=== PATIENT | female | born 1940 | race Caucasian/White ===

== ENCOUNTER 2016-06-15 03:51 | Inpatient (IN) | payer MEDICARE, OTHER ==
--- NOTE | ~2016-06-15 | HP ---
History And Physical [place] [address] [facility] [place]. [address] NAME: KELTON HOOVER : 42 STATUS : ADM IN [facility]#: [id number] AGE: 75 ADM/REG DATE : 06/15/16 MR#: [id number] REPORT SERV DATE: 06/15/16 DICTATED BY: JUAN MIGUEL GONSALEZ DATE: 06/15/16 REPORT STATUS : Draft TRANSCRIBED BY: MODL DATE: 06/15/16 DATE OF ADMISSION: 06/15/2016 CHIEF COMPLAINT: Shortness of breath and cough. HISTORY OF PRESENT ILLNESS: The patient is a 75-year-old female whom I am asked to see for the Hospitalist Service. She is normally a patient of Dr. Gleason's. She was recently discharged on 06/08/2016 of this month after admission for atrial fibrillation, ESBL UTI, COPD, diabetes, and CKD. Dr. Gleason is currently unavailable, and the patient gives consent for treatment at this time. History is per the patient and her . They state that last evening she became more short of breath. Her thought it may be her heart more than her COPD. He gave her her Coreg and Cardizem as per her previous guidelines. When she still was short of breath, she presented to the emergency department. Here, she was noted to be in AFib with RVR, heart rates around 100. She was also noted to have some slight increase in her renal function with a creatinine of 1.46, it was previously 0.79 at her last discharge. The patient is currently denying chest pain. She does experience some palpitations. No fevers or chills. No chest pain. She normally is on approximately 3 liters of nasal cannula, she is on 4 here. Heart rate has been anywhere from the low 100s to the 120s to 130s when I have been talking to her, but her heart rate seems to trend down. She is currently, otherwise, without complaints. PAST MEDICAL HISTORY: As covered above. PAST SURGICAL HISTORY: As reviewed in her records. HOME MEDICATIONS: Eliquis 5 b.i.d.; aspirin 81; Symbicort 160/4.5 two puffs twice a day; Caltrate 600 plus D; Coreg 25 b.i.d.; Cardizem CD 120 q.6 hours; folic acid 800; Neurontin 600; Mucinex 600; hydrocodone 5/325; Lantus twice a day, unknown dose; Humalog sliding scale, unknown dose; Combivent one puff four times a day; levothyroxine 100; magnesium 400; Mycostatin t.i.d.; potassium 10; prednisone Dosepak; Florastor 250; and Spiriva inhaler. ALLERGIES: TO IODINE, CODEINE, LISINOPRIL, AND BACTRIM. FAMILY HISTORY: Noncontributory. SOCIAL HISTORY: The patient is . Lives with her who is with her here this evening. REVIEW OF SYSTEMS: HEENT: No complaints. CARDIOVASCULAR: As covered in the HPI. PULMONARY: As covered in the HPI. GI: No nausea or vomiting. NEUROMUSCULOSKELETAL: No complaints. NEUROLOGICAL: No complaints. History And Physical [address] [address] NAME: KELTON HOOVER : 42 STATUS : ADM IN [facility]#: [id number] AGE: 75 ADM/REG DATE : 06/15/16 MR#: [id number] REPORT SERV DATE: 06/15/16 DICTATED BY: JUAN MIGUEL GONSALEZ DATE: 06/15/16 REPORT STATUS : Draft TRANSCRIBED BY: CALOS DATE: 06/15/16 Remainder of 14-point review of systems is negative. PHYSICAL EXAMINATION: VITAL SIGNS: BP 114/71, pulse 102, temperature 97.6, respirations 24, and saturation 99%. GENERAL: She is awake, alert, and oriented. She is not confused, no acute distress. Reasonable historian. HEENT: Normocephalic and atraumatic. Sclerae nonicteric. NECK: Supple. HEART: Irregular, tachycardic. LUNGS: She has some rales and rhonchi bilaterally. ABDOMEN: Obese, benign. EXTREMITIES: Positive for dependent edema, right greater than left, the patient states that is chronic. LABORATORY DATA: Sodium 135, potassium 3.7, chloride 89, CO2 36, BUN and creatinine 33 and 1.46 with a glucose of 100. Troponin is less than 0.02. BNP is 418.7. White count 7.5, H and H are 9.3 and 32.3, and platelets are 274. Urinalysis is negative. Blood and sputum cultures are pending. EKG shows atrial fibrillation. Blood gas; pH 7.43, CO2 of 69, O2 85, bicarb 45, and sat 96% on 4 liters. ASSESSMENT: Shortness of breath in a 75-year-old female with a past history of chronic obstructive pulmonary disease, atrial fibrillation, now with elevated creatinine, presumed from diuresis. PLAN: 1. The patient has been admitted. 2. Rate control. 3. Cardiology consult. 4. We will maximize her pulmonary status. 5. She may benefit from some BiPAP with sleep and at bedtime. 6. We will hold her diuretics, although her BNP is slightly elevated, creatinine is quite high. 7. We will return care to Dr. Gleason when available. TLF/MODL Juan Miguel Gonsalez M.D. / [id number] CC: MD Mayco Arroyo M.D.
--- NOTE | ~2016-06-15 | CN ---
Consultation Report [facility] [address] [place]. [address] NAME: KELTON HOOVER : 42 STATUS : ADM IN PAT#: [id number] AGE: 75 ADM/REG DATE : 06/15/16 MR#: [id number] REPORT SERV DATE: 06/15/16 DICTATED BY: ZABRINA ESQUIVEL DATE: 06/15/16 REPORT STATUS : Draft TRANSCRIBED BY: MODKane DATE: 06/15/16 CARDIOLOGY CONSULTATION NOTE DATE OF CONSULTATION: HISTORY OF PRESENT ILLNESS: This bedridden, obese 75-year-old white female, ex-smoker with COPD, was admitted with a two-week history of increasing shortness of breath with some peripheral edema. She had been seen over the years by Dr. Mittal prior to his fdc and was told that she also had chronic atrial fibrillation and congestive heart failure. She has had no recent echocardiogram, but has a known cardiac murmur. There is a long history of past hypertension and diabetes mellitus as well as psoriasis; she has been on steroid therapy off and on for her COPD, as well. FAMILY HISTORY: Negative for premature atherosclerotic heart disease. PREVIOUS SURGERIES: Include hip repair, shoulder repair, and an appendectomy. SOCIAL HISTORY: She is and has three healthy children. MEDICATIONS: At home have included Eliquis, Halfprin, Symbicort, Caltrate, carvedilol, diltiazem, folic acid, gabapentin, [place], insulin for diabetes mellitus, Combivent inhaler, thyroid replacement therapy with levothyroxine, magnesium, and nystatin. She also takes prednisone, Dosepak, and potassium replacement. She uses a Spiriva HandiHaler when wheezing. ALLERGIES: SHE HAS NO KNOWN ALLERGIES. SHE HAS INTOLERANCE TO IODINE, CODEINE, LISINOPRIL, SULFA DRUGS, AND TRIMETHOPRIM. SHE SEES CANDIDO MORALES HER PRIMARY CARE PROVIDER, WHO SEES HER IN THE HOME SETTING. THERE HAS BEEN NO SYNCOPE OR NEAR SYNCOPE. NO HISTORY OF RECENT STROKE OR TIA SYMPTOMS. LABORATORY STUDIES: BUN is 33 with a creatinine of 1.46, potassium 3.7, platelet counts are 274,000. Hematocrit 32%, white blood cell count 7.5 thousand. Troponin less than 0.02. B type natriuretic peptide elevated at 419. REVIEW OF SYSTEMS: She denies any chest pain and has had no chills, fever, or hemoptysis. PHYSICAL EXAMINATION: VITAL SIGN: Blood pressure 110/70. HEENT: Head reveals cushingoid features. Eyes are PERRLA. Nose had no epistaxis. SKIN: Clear of ulceration, but she had multiple bruises present on her legs and chest. She is unable to walk and has not been falling to account for the bruising. Psoriatic lesions are also noted. Consultation Report [address] [place]. [address] NAME: KELTON HOOVER : 42 STATUS : ADM IN PAT#: [id number] AGE: 75 ADM/REG DATE : 06/15/16 MR#: [id number] REPORT SERV DATE: 06/15/16 DICTATED BY: ZABRINA ESQUIVEL DATE: 06/15/16 REPORT STATUS : Draft TRANSCRIBED BY: CALOS DATE: 06/15/16 NECK: Supple. LUNGS: Had decreased breath sounds. I hear no wheezes, rales, or rhonchi. HEART: Irregular rhythm, variable S1, normal S2. Grade 2/6 systolic ejection murmur at the base radiating the base of the neck. ABDOMEN: Morbidly obese. Nontender. EXTREMITIES: Had mild pitting edema to the knees bilaterally. She is very large. NEUROLOGIC: Intact except for a chronic tremor. She said that her father and his brother have also had this tremor. CLINICAL IMPRESSIONS: 1. Shortness of breath-multifactorial. 2. Chronic obstructive pulmonary disease in an ex-smoker. 3. Aortic stenosis murmur. 4. Previous history of congestive heart failure. 5. Atrial fibrillation. 6. Morbid obesity. 7. Psoriasis. 8. History of hypertension. 9. History of type 2 diabetes mellitus. RECOMMENDATIONS: 1. Cautious diuresis for volume overload. 2. Check echocardiogram with Doppler. 3. Check a TSH. 4. Further recommendations to follow clinical course. I agree with management and workup by the hospitalist service. 5. EKG shows atrial fibrillation with normal axis and nonspecific T changes. CALOS/CALOS Zabrina Esquivel M.D. / [id number] CC: MD Candido Arroyo M.D.
--- NOTE | ~2016-06-15 | DS ---
Discharge Summary [facility] [address] [place]. [address] NAME: KELTON HOOVER : 42 STATUS : DIS IN PAT#: [id number] AGE: 75 ADM/REG DATE : 06/15/16 MR#: [id number] REPORT SERV DATE: 06/23/16 DICTATED BY: CANDIDO MORALES DATE: 06/22/16 REPORT STATUS : Draft TRANSCRIBED BY: MODL DATE: 06/22/16 ADMISSION DATE: 06/15/2016 DISCHARGE DATE: 06/22/2016 DATE AND TIME OF : 06/22/2016 at 2:58 p.m. HISTORY OF PRESENT ILLNESS: The patient came into the hospital with a chief complaint of shortness of breath with AFib and RVR, heart rate from 100 to 130, required BiPAP at sleep. Cardiology was consulted. She had a BNP of 418.7 and a BUN and creatinine of 33 and 1.46. Chest x-ray revealed pleural effusions with vascular congestion. She was admitted on telemetry, started on a Cardizem drip for cardiac regulation, breathing treatment. DISCHARGE DIAGNOSES: Hypoventilation secondary to her morbid obesity and history of chronic obstructive pulmonary disease with exacerbations and hypercapnia; diastolic congestive heart failure with a left ventricular ejection fraction of 55%; history of medical noncompliance, back in January, it was asked of her to use a CPAP machine at home, which she refused and frequently would refuse her BiPAP in the hospital; history of atrial fibrillation; insulin- dependent diabetes, following her discharge, the patient ate very little; and extended- spectrum beta-lactamase urinary tract infection. HOSPITAL COURSE: Following her last hospitalization, she ate very little, slept most of the day, refused to keep her appointments with GI and Cardiology as she would have to pay for transportation down. Blood sugars were well controlled at home, and upon coming into the hospital, had anasarca, fatigue, hyponatremia from fluid overload, and despite aggressive diuresing, the patient continued to go down. Had a discussion in the presence of both her and her on 06/20/2016 with the goal being that we would aggressively diurese her, she would agree to use a BiPAP for discharge to home on 06/22/2016. The patient continued to decline and later at 2:58 on 06/22/2016. Her son and daughter had spent the night prior on 06/21/2016. Everyone was very realistic about what was going on. The was still very hopeful that something else could be done. He is very distraught. We will follow him up in our clinic next week. MAYDA/CALOS Candido Morales M.D. / [id number] CC: Candido Morales M.D.
[~2016-06-15 03:51] MED LIST: *UNABLE2; 8 HOUR650 MG PO; ACTOS45 PO; ALTACE10 MG PO; AMARYL2 PO; APRES50 PO; ASA5GR PO; ASAB PO; ATV.5 PO; ATV1 PO; B-12 PO; B12250T PO; BACDS PO; BAZA TOP; BISR PR; BREO ELLIPTA INH; CALTRA600D PO; CARD60 PO; CARDCD180 PO; CEFT2 PO; CEFT5 PO; CEFUROXIME; CENTRUM PO; CHERATUSSIN PO; CIP5 PO; COMBIVENT RESPIM4 GM INH; COREG25 PO; COREG3 PO; COREG6 PO; CYANO1000T PO; D.O.S.100 MG PO; DIGITEK0.125 MG PO; DOCUSOFT S100 MG PO; DSS PO; DUONEB INH; ELIQUIS 5 MG TAB5 MG PO; ENBREL25 MG SC; ENBREL50 MG/M1 SC; FLEET ENEMA PR; FLEX PO; FLONASE NAS; FLORASTOR250 MG PO; FLUCON1 PO; FOLIC ACID400 MC1 PO; FOLIC ACID800 MCG PO; FOLIC PO; GLUCAGON IM; GRALISE600 MG PO; HALF81 PO; HUMALOG SC; HUMALOGPEN SC; IMOD PO; INCRUSE ELLIPTA INH; K-TABS10 MEQ PO; KAPIDEX60 MG PO; KDUR10 PO; KLOR-CON 1010 MEQ PO; KURIC2 % TOP; L20 PO; LAN125 PO; LANOXIN 0.120.125 MG OR; LANTUS SC; LANTUSCART SC; LEVEMFLXPN SC; LEVEMIR SC; LEVOTHROID88 MCG PO; LEVOTHYROXIN100 MCG PO; LEXAPRO10 PO; LEXAPRO20 PO; LEXAPRO5 MG PO; LIDODERM TOP; LIPITOR40 PO; LORT7 PO; LOVENOX40 SC; MAALOX PO; MAGOX4 PO; MERREM500 MG IV; METAMUCIL CAN7 OZ OR; METAMUCIL CAN7 OZ PO; MICRO-K10 MEQ PO; MIRALAXPKT PO; MOMUD PO; MTX2.5 PO; MUCINEX600 MG PO; MULTIPLE VIT PO; MULTIVITAMI1 PO; MYCOLOG II CREA15 GM TOP; MYCOSCROI TOP; MYCOSOINT TOP; NEBULIZER; NEUR600 PO; NEXIUM40 PO; NORCO1 TA1 PO; NORCO1 TA2 PO; NORCO1 TAB PO; NORV5 PO; NOVOLOG SC; NOVOPEN SC; NTG150 SL; NYSTATIN-TRIAMC15 GM TOP; NYSTATPOW TOP; NYSTOP100000 MG TOP; OCEAN NAS; P10 PO; P20 PO; P5 PO; PRIN5 PO; PROAIR HFA INH; PROBIOTIC OTC PO; PROBIOTIC PO; PROTONIX PO; PROVENT20 INH; RESCUE INHALER PO; REST15 PO; SENTAB PO; SPIRIVA INH; STARLIX60 PO; STERAPRED DS10 MG; STOOL SOFTEN100 MG PO; SYMBICORT 160/41 INH INH; SYN1 PO; TESS PO; TRAZ100 PO; TRAZ50 PO; TREXALL7.5 MG PO; TRIDERM0.1 % TOP; ULTRAM50 PO; VENTOLIN HFA INH; VICODIN ES1 TAB PO; VIT B-12 PO; VITAMIN D PO; VITAMIN D1000 UNI1 PO; VITAMIN D31000 UNIT PO; VITC500 PO; ZYVOXPO PO; [UNRECOGNIZED DRUG - OTHER] T
[2016-06-15 04:07] LABS: ALLENS TEST Pos; BE (BASE EXCESS) 18.1 MEQ/L (0 +/- 2.5); CARBOXYHEMOGLOBIN 0.3 % (0-3); DEVICE NC; HCO3 (ACTUAL BICARBONATE) 45.1 MEQ/L (23-27); HEMOBLOGIN CONTENT 9.9 G/DL (12-16); INSTRUMENT SERIAL # 8087; METHEMOGLOBIN 0.3 % (0-3); O2 CONTENT 13.4 VOL% (18-24); PCO2 (CO2 TENSION) 69 MMHG (35-45); PO2 (O2 TENSION) 85 MMHG (79-93); SAMPLE Arterial; pH 7.43 (7.37-7.43)
[2016-06-15 05:01] LABS: INFLUENZA A SCREEN NEGATIVE (NEGATIVE); INFLUENZA B SCREEN NEGATIVE (NEGATIVE)
[2016-06-15 05:11] LABS: BASOPHILS 0.5 %; BASOPHILS ABSOLUTE 0.04 10/3/uL (0.0-0.16); EOSINOPHILS 0.5 %; EOSINOPHILS ABSOLUTE 0.04 10/3/uL (0.0-0.53); HEMATOCRIT 32.3 % (36.0-48.0); HEMOGLOBIN 9.3 g/dL (12.0-16.0); IMMATURE GRANULOCYTES 3.9 %; IMMATURE GRANULOCYTES ABSOLUTE 0.29 10/3/uL (0.0-0.11); LYMPHOCYTES 16.7 %; LYMPHOCYTES ABSOLUTE 1.25 10/3/uL (0.67-4.30); MEAN CORPUSCULAR HEMOGLOB 29.6 pg (26.0-34.0); MEAN PLATELET VOLUME 10.5 fL (9.2-13.0); MONOCYTES ABSOLUTE 0.75 10/3/uL (0.21-1.20); NEUTROPHILS 68.4 %; NEUTROPHILS ABSOLUTE 5.13 10/3/uL (2.02-8.40); NUCLEATED RED BLOOD CELLS 0.5 /100WBC (0-0); PLATELET COUNT 274 10/3/uL (150-400); RBC DISTRIBUTION WIDTH 16.7 % (12.0-16.0); RED CELL COUNT 3.14 10/6/uL (4.0-5.6); WHITE BLOOD CELLS 7.5 10/3/uL (4.5-10.5)
[2016-06-15 05:13] LABS: MANUAL DIFF NO %; MEAN CORPUS HGB CONC 28.8 g/dL (32.0-36.0); MEAN CORPUSCULAR VOLUME 102.9 fL (80-100)
[2016-06-15 05:32] LABS: A/G RATIO 0.6 (0.7-1.9); ALBUMIN 2.1 G/DL (3.5-5.0); ALKALINE PHOSPHATASE 72 U/L (45-117); CALCIUM, SERUM 8.5 MG/DL (8.5-10.4); CHLORIDE, SERUM 89 MMOL/L (96-112); CO2 (CARBON DIOXIDE) 36 MMOL/L (24-34); GLOBULIN 3.7 G/DL (2.5-4.1); POTASSIUM, SERUM 3.7 MMOL/L (3.5-5.3); SGOT(AST) 9 U/L (5-40); SGPT(ALT) 19 U/L (5-65); SODIUM, SERUM 135 MMOL/L (135-148); TOTAL BILIRUBIN 0.4 MG/DL (0-1.2); TOTAL PROTEIN 5.8 G/DL (6.0-8.5); TROPONIN I <0.02 NG/ML (<0.05)
[2016-06-15 05:33] LABS: BUN (BLOOD UREA NITROGEN) 33 MG/DL (6-23); CREATININE 1.46 MG/DL (0.55-1.02); GFR AFRICAN AMERICAN 41 ML/MIN (>=60); GFR NON AFRICAN AMERICAN 35 ML/MIN (>=60); GLUCOSE, SERUM 100 MG/DL (60-99)
[2016-06-15 05:38] LABS: ASCORBIC ACID (UR NOT ORDER) 40 (NEG); BILIRUBIN, URINE NEGATIVE (NEG); ER URINALYSIS TAT 0 Hrs 00 Mins; KETONE, URINE NEGATIVE (NEG); LEUKOCYTE ESTERASE(NOT OR NEG (NEG); NITRITE (URINE) NEG (NEG); WBC (NOT ORDERED) (RFLEX) 1 (0-5)
[2016-06-15] MEDS ORDERED: SYMBICORT 160/41 INH INH (06:06)
[2016-06-15] MEDS ORDERED: HALF81 PO (06:06)
[2016-06-15] MEDS ORDERED: ELIQUIS 5 MG TAB5 MG PO (06:06)
[2016-06-15] MEDS ORDERED: CALTRA600D PO (06:07)
[2016-06-15] MEDS ORDERED: COREG25 PO (06:07)
[2016-06-15] MEDS ORDERED: CARDIZEM LA180 MG PO (06:08)
[2016-06-15] MEDS ORDERED: FOLIC PO (06:09)
[2016-06-15] MEDS ORDERED: MUCINEX600 MG PO (06:10)
[2016-06-15] MEDS ORDERED: NEUR600 PO (06:10)
[2016-06-15] MEDS ORDERED: NORCO1 TA1 PO (06:11)
[2016-06-15] MEDS ORDERED: LANTUS SC (06:11)
[2016-06-15] MEDS ORDERED: COMBIVENT RESPIM4 GM INH (06:12)
[2016-06-15] MEDS ORDERED: HUMALOG SC (06:12)
[2016-06-15] MEDS ORDERED: LEVOTHYROXIN100 MCG PO (06:13)
[2016-06-15] MEDS ORDERED: MAGOX4 PO (06:13)
[2016-06-15] MEDS ORDERED: NYSTATPOW TOP (06:14)
[2016-06-15] MEDS ORDERED: KLOR-CON M1010 MEQ PO (06:15)
[2016-06-15] MEDS ORDERED: FLORASTOR250 MG PO (06:16)
[2016-06-15] MEDS ORDERED: P20 PO (06:16)
[2016-06-15] MEDS ORDERED: SPIRIVA INH (06:17)
[2016-06-15 13:14] LABS: PROCALCITONIN 0.17 ng/mL (<0.5)
[2016-06-15 13:23] LABS: TROPONIN I <0.02 NG/ML (<0.05)
[2016-06-15] MEDS ORDERED: L20 PO (18:34)
[2016-06-15] MEDS ORDERED: KAPIDEX60 MG PO (18:35)
[2016-06-15] MEDS ORDERED: ALBUTEROL5 INH (18:37)
[2016-06-15 21:05] LABS: ALLENS TEST Pos; BE (BASE EXCESS) 6.8 MEQ/L (0 +/- 2.5); CARBOXYHEMOGLOBIN 0.6 % (0-3); DEVICE NC; HCO3 (ACTUAL BICARBONATE) 32.4 MEQ/L (23-27); HEMOBLOGIN CONTENT 10.3 G/DL (12-16); INSTRUMENT SERIAL # 8083; METHEMOGLOBIN 0.2 % (0-3); O2 CONTENT 14.3 VOL% (18-24); OPERATOR ID 30013; PCO2 (CO2 TENSION) 51 MMHG (35-45); PO2 (O2 TENSION) 119 MMHG (79-93); SAMPLE Arterial; pH 7.42 (7.37-7.43)
[2016-06-16 06:47] LABS: CALCIUM, SERUM 8.3 MG/DL (8.5-10.4); CHLORIDE, SERUM 88 MMOL/L (96-112); CREATININE 1.46 MG/DL (0.55-1.02); GFR AFRICAN AMERICAN 41 ML/MIN (>=60); GFR NON AFRICAN AMERICAN 35 ML/MIN (>=60); POTASSIUM, SERUM 4.2 MMOL/L (3.5-5.3); SODIUM, SERUM 132 MMOL/L (135-148)
[2016-06-16 06:48] LABS: BUN (BLOOD UREA NITROGEN) 37 MG/DL (6-23); CO2 (CARBON DIOXIDE) 28 MMOL/L (24-34); GLUCOSE, SERUM 283 MG/DL (60-99)
[2016-06-17 06:00] LABS: BASOPHILS 0.3 %; BASOPHILS ABSOLUTE 0.02 10/3/uL (0.0-0.16); EOSINOPHILS 0 %; HEMATOCRIT 26.1 % (36.0-48.0); HEMOGLOBIN 8.6 g/dL (12.0-16.0); IMMATURE GRANULOCYTES 1.8 %; IMMATURE GRANULOCYTES ABSOLUTE 0.14 10/3/uL (0.0-0.11); LYMPHOCYTES 6.6 %; LYMPHOCYTES ABSOLUTE 0.51 10/3/uL (0.67-4.30); MANUAL DIFF NO %; MEAN CORPUSCULAR HEMOGLOB 29.1 pg (26.0-34.0); MEAN CORPUSCULAR VOLUME 88.2 fL (80-100); MEAN PLATELET VOLUME 9.3 fL (9.2-13.0); MONOCYTES 5.9 %; MONOCYTES ABSOLUTE 0.45 10/3/uL (0.21-1.20); NEUTROPHILS 85.4 %; NEUTROPHILS ABSOLUTE 6.56 10/3/uL (2.02-8.40); NUCLEATED RED BLOOD CELLS 0.4 /100WBC (0-0); PLATELET COUNT 259 10/3/uL (150-400); RBC DISTRIBUTION WIDTH 16.5 % (12.0-16.0); RED CELL COUNT 2.96 10/6/uL (4.0-5.6); WHITE BLOOD CELLS 7.7 10/3/uL (4.5-10.5)
[2016-06-17 06:12] LABS: A/G RATIO 0.6 (0.7-1.9); ALBUMIN 2.1 G/DL (3.5-5.0); ALKALINE PHOSPHATASE 70 U/L (45-117); CALCIUM, SERUM 8.4 MG/DL (8.5-10.4); CHLORIDE, SERUM 85 MMOL/L (96-112); CREATININE 1.81 MG/DL (0.55-1.02); GFR AFRICAN AMERICAN 31 ML/MIN (>=60); GFR NON AFRICAN AMERICAN 27 ML/MIN (>=60); GLOBULIN 3.4 G/DL (2.5-4.1); GLUCOSE, SERUM 260 MG/DL (60-99); POTASSIUM, SERUM 3.6 MMOL/L (3.5-5.3); SGOT(AST) 7 U/L (5-40); SGPT(ALT) 18 U/L (5-65); SODIUM, SERUM 128 MMOL/L (135-148); TOTAL BILIRUBIN 0.4 MG/DL (0-1.2); TOTAL PROTEIN 5.5 G/DL (6.0-8.5)
[2016-06-17 06:16] LABS: BUN (BLOOD UREA NITROGEN) 47 MG/DL (6-23); CO2 (CARBON DIOXIDE) 33 MMOL/L (24-34); PHOSPHORUS, SERUM 4.4 MG/DL (2.5-4.5)
[2016-06-17 22:23] LABS: ALLENS TEST Pos; BE (BASE EXCESS) 10.4 MEQ/L (0 +/- 2.5); CARBOXYHEMOGLOBIN 0.3 % (0-3); DEVICE NC; HCO3 (ACTUAL BICARBONATE) 34.7 MEQ/L (23-27); HEMOBLOGIN CONTENT 9.5 G/DL (12-16); INSTRUMENT SERIAL # 11843; METHEMOGLOBIN 0.6 % (0-3); O2 CONTENT 12.5 VOL% (18-24); OPERATOR ID 17370; PCO2 (CO2 TENSION) 46 MMHG (35-45); PO2 (O2 TENSION) 76 MMHG (79-93); SAMPLE Arterial
[2016-06-18 05:33] LABS: BASOPHILS 0.2 %; BASOPHILS ABSOLUTE 0.02 10/3/uL (0.0-0.16); EOSINOPHILS 0 %; HEMOGLOBIN 8.8 g/dL (12.0-16.0); IMMATURE GRANULOCYTES 2.1 %; IMMATURE GRANULOCYTES ABSOLUTE 0.23 10/3/uL (0.0-0.11); LYMPHOCYTES 6.9 %; LYMPHOCYTES ABSOLUTE 0.77 10/3/uL (0.67-4.30); MEAN CORPUS HGB CONC 33.8 g/dL (32.0-36.0); MEAN CORPUSCULAR HEMOGLOB 29.6 pg (26.0-34.0); MEAN CORPUSCULAR VOLUME 87.5 fL (80-100); MEAN PLATELET VOLUME 9.5 fL (9.2-13.0); MONOCYTES 7.5 %; MONOCYTES ABSOLUTE 0.83 10/3/uL (0.21-1.20); NEUTROPHILS 83.3 %; NEUTROPHILS ABSOLUTE 9.25 10/3/uL (2.02-8.40); PLATELET COUNT 254 10/3/uL (150-400); RBC DISTRIBUTION WIDTH 16.6 % (12.0-16.0); RED CELL COUNT 2.97 10/6/uL (4.0-5.6)
[2016-06-18 05:35] LABS: MANUAL DIFF NO %; WHITE BLOOD CELLS 11.1 10/3/uL (4.5-10.5)
[2016-06-18 05:40] LABS: BUN (BLOOD UREA NITROGEN) 50 MG/DL (6-23); CALCIUM, SERUM 9.1 MG/DL (8.5-10.4); CHLORIDE, SERUM 86 MMOL/L (96-112); CO2 (CARBON DIOXIDE) 33 MMOL/L (24-34); CREATININE 1.91 MG/DL (0.55-1.02); GFR AFRICAN AMERICAN 29 ML/MIN (>=60); GFR NON AFRICAN AMERICAN 25 ML/MIN (>=60); POTASSIUM, SERUM 3.7 MMOL/L (3.5-5.3); PREALBUMIN 13.8 MG/DL (17.0-43.0); SODIUM, SERUM 127 MMOL/L (135-148)
[2016-06-18 05:48] LABS: GLUCOSE, SERUM 116 MG/DL (60-99)
[2016-06-19 06:16] LABS: BUN (BLOOD UREA NITROGEN) 48 MG/DL (6-23); CALCIUM, SERUM 8.6 MG/DL (8.5-10.4); CHLORIDE, SERUM 84 MMOL/L (96-112); CO2 (CARBON DIOXIDE) 30 MMOL/L (24-34); CREATININE 1.83 MG/DL (0.55-1.02); GFR AFRICAN AMERICAN 31 ML/MIN (>=60); GFR NON AFRICAN AMERICAN 27 ML/MIN (>=60); GLUCOSE, SERUM 126 MG/DL (60-99); SODIUM, SERUM 130 MMOL/L (135-148)
[2016-06-19 06:17] LABS: POTASSIUM, SERUM 4.6 MMOL/L (3.5-5.3)
[2016-06-20 06:39] LABS: BUN (BLOOD UREA NITROGEN) 45 MG/DL (6-23); CALCIUM, SERUM 10.3 MG/DL (8.5-10.4); CHLORIDE, SERUM 92 MMOL/L (96-112); CO2 (CARBON DIOXIDE) 29 MMOL/L (24-34); CREATININE 1.47 MG/DL (0.55-1.02); GFR AFRICAN AMERICAN 40 ML/MIN (>=60); GFR NON AFRICAN AMERICAN 35 ML/MIN (>=60); GLUCOSE, SERUM 99 MG/DL (60-99); POTASSIUM, SERUM 3.6 MMOL/L (3.5-5.3); SODIUM, SERUM 133 MMOL/L (135-148)
[2016-06-21 06:49] LABS: BUN (BLOOD UREA NITROGEN) 42 MG/DL (6-23); CHLORIDE, SERUM 91 MMOL/L (96-112); CREATININE 1.16 MG/DL (0.55-1.02); GFR AFRICAN AMERICAN 54 ML/MIN (>=60); GFR NON AFRICAN AMERICAN 46 ML/MIN (>=60); POTASSIUM, SERUM 3.7 MMOL/L (3.5-5.3); SODIUM, SERUM 138 MMOL/L (135-148)
[2016-06-21 06:53] LABS: CO2 (CARBON DIOXIDE) 36 MMOL/L (24-34); GLUCOSE, SERUM 150 MG/DL (60-99)
[2016-06-22 12:30] LABS: BE (BASE EXCESS) 13.4 MEQ/L (0 +/- 2.5); CARBOXYHEMOGLOBIN 0.3 % (0-3); DEVICE NRB; HCO3 (ACTUAL BICARBONATE) 45.9 MEQ/L (23-27); HEMOBLOGIN CONTENT 9.1 G/DL (12-16); INSTRUMENT SERIAL # 11843; METHEMOGLOBIN 0.7 % (0-3); O2 CONTENT 9.6 VOL% (18-24); OPERATOR ID 13624; PCO2 (CO2 TENSION) 144 MMHG (35-45); PO2 (O2 TENSION) 54 MMHG (79-93); SAMPLE Arterial; pH 7.12 (7.37-7.43)
[2016-06-22 12:31] LABS: ALLENS TEST Pos
== END 2016-06-22 14:58 | disposition expired | DRG 291 ==
LOC: ER 03:51 → 1SO 08:38
PROVIDERS: Hospitalist; Internal Medicine; Internal Medicine Cardiovascular Disease; Internal Medicine Geriatric Medicine; Nurse Practitioner Acute Care
PROC: 5A09457 Assistance with Respiratory Ventilation, 24-96 Consecutive Hours, Continuous Positive Airway Pressure (ICD-10-PCS; principal; 2016-06-18)
DX: I13.0 Hypertensive heart and chronic kidney disease with heart failure and stage 1 through stage 4 chronic kidney disease, or unspecified chronic kidney disease (principal); I50.43 Acute on chronic combined systolic (congestive) and diastolic (congestive) heart failure; G93.49 Other encephalopathy; N17.9 Acute kidney failure, unspecified; J96.12 Chronic respiratory failure with hypercapnia; J96.11 Chronic respiratory failure with hypoxia; J90 Pleural effusion, not elsewhere classified; E87.2 Acidosis; E66.2 Morbid (severe) obesity with alveolar hypoventilation; E87.1 Hypo-osmolality and hyponatremia; N39.0 Urinary tract infection, site not specified; J44.1 Chronic obstructive pulmonary disease with (acute) exacerbation; L89.152 Pressure ulcer of sacral region, stage 2; E11.22 Type 2 diabetes mellitus with diabetic chronic kidney disease; I48.2 Chronic atrial fibrillation; Z51.5 Encounter for palliative care; Z66 Do not resuscitate; Z68.37 Body mass index [BMI] 37.0-37.9, adult; L40.50 Arthropathic psoriasis, unspecified; N18.3 Chronic kidney disease, stage 3 (moderate); S71.112A Laceration without foreign body, left thigh, initial encounter; I35.0 Nonrheumatic aortic (valve) stenosis; L40.9 Psoriasis, unspecified; E03.9 Hypothyroidism, unspecified; Z91.19 Patient's noncompliance with other medical treatment and regimen; Z74.01 Bed confinement status; Z87.891 Personal history of nicotine dependence; Z79.01 Long term (current) use of anticoagulants; Z79.891 Long term (current) use of opiate analgesic; Z79.82 Long term (current) use of aspirin; Z79.4 Long term (current) use of insulin; Z79.899 Other long term (current) drug therapy; Z88.2 Allergy status to sulfonamides; Z88.5 Allergy status to narcotic agent; Z88.8 Allergy status to other drugs, medicaments and biological substances; Z91.048 Other nonmedicinal substance allergy status; Z91.14 Patient's other noncompliance with medication regimen
CPT/HCPCS: 36600; 71010; 80048; 80053; 81001; 82805; 82962; 83735; 83880; 84100; 84134; 84145; 84443; 84484; 85025; 87040; 87070; 87077; 87186; 87205; 87804; 87880; 93005; 94640; 94660; 96374; 99285; A9270-GY; C8929; J1940; J2405; J2920; J2930; P9047; Q9957